=== PATIENT | female | born 2005 | race Caucasian/White ===

== ENCOUNTER 2024-11-29 08:08 | Emergency (ER) | payer BC ==
[2024-11-29] MEDS ORDERED: NA CHLORIDE 0.9% 1,000 ML ONE (09:22)
[2024-11-29] MEDS ORDERED: ONDANSETRON 4 MG/2 ML VIAL ONE (09:37)
[2024-11-29 09:46] LABS: Absolute Lymphocytes (CBC) 0.9 K/uL (0.7-4.9); Absolute Monocytes 1.3 K/uL (0.1-1.3); Absolute Neutrophil 16.8 K/uL (1.8-8.0); Basophils % 0.1 % (0-1.3); Hematocrit 38.8 % (36.0-45.0); Hemoglobin 13.1 g/dL (12.0-15.0); Lymphocytes % 4.5 % (15.3-44.8); MCH 31.4 pg (27.0-35.0); MCHC 33.8 g/dL (32.0-36.0); MCV 92.8 fL (80-100); MPV 7.2 fL (7.6-11.3); Neutrophils % 88.4 % (41.7-73.7); Platelets 440 thou/uL (152-406); RBC Red Blood Cell Count 4.17 M/uL (3.86-4.86); Red Cell Distribution Width 12.8 % (12.1-15.2)
[2024-11-29 10:01] LABS: ALT/SGPT 42 U/L (13-56); AST/SGOT 34 U/L (15-37); Albumin 4.6 g/dL (3.4-5.0); Albumin/Globulin Ratio 1.2 (1.1-1.8); Alkaline Phosphatase 71 U/L (45-117); Anion Gap 12.2 mEq/L (5.0-15.0); BUN Blood Urea Nitrogen 11 mg/dL (7-18); Bicarbonate 23 mEq/L (21-32); Bilirubin Direct < 0.2 mg/dL (0-0.2); Bilirubin Indirect, Calculated 0.3 mg/dL (0.2-0.8); Bilirubin Total 0.5 mg/dL (0.2-1.0); Glomerular Filtration Rate 105 ml/min (=/>90); Glucose Level 134 mg/dL (74-106); Lipase 20 U/L (13-75); Potassium 3.2 mEq/L (3.5-5.1); Protein, Total 8.6 g/dL (6.4-8.2); Sodium Level 139 mEq/L (136-145)
[2024-11-29] MEDS ORDERED: METOCLOPRAMIDE 10 MG/2mL INJ ONE (10:25)
[2024-11-29 10:57] LABS: Differential Total Cells Count 100; Lymphocytes 7 % (15-42); Monocytes 5 % (0-10); Platelet Estimate ADEQ; Segmented Neutrophils 88 % (40-80)
[2024-11-29 10:58] LABS: Blood Morphology Comment NOT SEEN (NOT SEEN)
[2024-11-29 11:33] LABS: Specific Gravity 1.023 (1.005-1.030)
[2024-11-29 11:36] LABS: Specific Gravity 1.023 (1.005-1.030); Sqamous Epithelial <5 /HPF (None Seen); Urine Bacteria None Seen /HPF (<20); Urine Bilirubin NEGATIVE (Negative); Urine Blood Negative (Negative); Urine Clarity Turbid (Clear); Urine Color Light-Yellow (Yellow); Urine Culture Reflex Order NOT NEEDED; Urine Glucose NEGATIVE (Negative); Urine Ketones 1+ (Negative); Urine Micro Reflex YN NO BILL MICROSCOPIC; Urine Mucus Slight /HPF (None Seen); Urine Nitrite NEGATIVE (Negative); Urine Protein 1+ (Negative); Urine RBC <5 /HPF (None Seen); Urine Urobilinogen Normal (Normal); Urine WBC <5 /HPF (<5); Urine pH 8.5 (5.0-7.0)
--- NOTE | 2024-11-29 12:12 | RAD REPORT ---
EXAMINATION: CT ABDOMEN AND PELVIS WITH CONTRAST CLINICAL INDICATION: Female, 19 years old.ABD PAIN TECHNIQUE: CT abdomen and pelvis was performed, after the administration of IV contrast, [facility]. Axial, sagittal and coronal reconstructions were obtained. One or more of the following dose reduction techniques were used: Automated exposure control, adjustment of the mA and/o r kV according to patient size, and/or iterative reconstruction. Unless otherwise specified, incidental findings do not require dedicated imaging follow-up. [id number]. COMPARISON: No prior exam. FINDINGS: LOWER CHEST: No acute process identified.No significant pericardial effusion. UPPER GI: No significant abnormality. LIVER: No significant focal abnormality. GALLBLADDER/BILE DUCTS: No biliary ductal dilatation.? PANCREAS: No mass, ductal dilation, or randell-pancreatic fluid. SPLEEN: Unremarkable. ADRENALS: No adrenal masses. KIDNEYS AND URETERS: No hydronephrosis.No suspicious renal mass. ABDOMINAL AORTA AND OTHER VESSELS: Normal caliber aorta and IVC. PERITONEUM: No abnormal free fluid. No free air. LYMPH NODES: No pathologic lymphadenopathy. ABDOMINAL WALL: Unremarkable SMALL BOWEL/COLON: Small bowel has normal course and caliber. No colonic wall thickening or pericolon ic inflammatory changes.Normal appendix. URINARY BLADDER: Underdistended but grossly unremarkable. REPRODUCTIVE ORGANS: 3 cm left adnexal cyst. <=5 cm: No follow-up imaging recommended MUSCULOSKELETAL: No acute or suspicious osseous abnormality. ADDITIONAL FINDINGS: None. IMPRESSION: No acute or significant abnormalities seen in the abdomen or pelvis. Normal appendix.
--- NOTE | 2024-11-29 12:19 | ER ---
Nurse's Notes [facility] Name: Ailyn Rapp Age: 19 yrs Sex: Female : 2005 Arrival Date: 11/29/2024 Time: 08:08 Bed 8 Private MD: Diagnosis: Veisalgia;Veisalgia (Hangover) Presentation: 11/29 08:38 Chief complaint: Patient states: Had a green party last night and drank tequila, woke this jl7 morning at 0400 with N/V/D, does not regularly drink. Mom reports intermittent blue lips, pt denies shortness of breath. Coronavirus screen: At this time, the client does not indicate any symptoms associated with coronavirus-19. Ebola Screen: No symptoms or risks identified at this time. Initial Sepsis Screen: Does the patient meet any 2 criteria? No. Patient's initial sepsis screen is negative. Does the patient have a suspected source of infection? No. Patient's initial sepsis screen is negative. Risk Assessment: Do you want to hurt yourself or someone else? Patient reports no desire to harm self or others. Onset of symptoms was November 29, 2024 at 04:00. 08:38 Method Of Arrival: Ambulatory [facility] 08:38 Acuity: ISABELL 3 jl7 Triage Assessment: 08:40 General: Appears in no apparent distress. uncomfortable, unkempt, well nourished, jl7 Behavior is calm, cooperative, restless. Pain: Denies pain. Neuro: Level of Consciousness is awake, alert, obeys commands, Oriented to person, place, time, situation. Cardiovascular: Patient's skin is warm and dry. Respiratory: Airway is patent Respiratory effort is even, unlabored, Respiratory pattern is regular, symmetrical. Derm: Skin is pink, warm \T\ dry. 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 - Infectious Disease History:: Denies. - Social history:: Smoking status: Reported history of juuling and/or vaping. Patient uses street drugs, marijuana. Screenin:40 [facility] ED Fall Risk Assessment (Adult) History of falling in the last 3 months, hb including since admission No falls in past 3 months (0 pts) Confusion or Disorientation No (0 pts) Intoxicated or Sedated No (0 pts) Impaired Gait No (0 pts) Mobility Assist Device Used No (0 pt) Altered Elimination No (0 pt) Score/Fall Risk Level 0 - 2 = Low Risk Oriented to surroundings, Maintained a safe environment, Educated pt \T\ family on fall prevention, incl call for assistance when getting out of bed. Abuse screen: Denies threats or abuse. Denies injuries from another. Nutritional screening: No deficits noted. Tuberculosis screening: No symptoms or risk factors identified. Assessment: 09:40 General: Appears in no apparent distress. Behavior is calm, cooperative. Pain: Denies hb pain. Neuro: Level of Consciousness is awake, alert, obeys commands, Oriented to person, place, time, situation. Cardiovascular: Patient's skin is warm and dry. Respiratory: Respiratory effort is even, unlabored, Respiratory pattern is regular, symmetrical. GI: Reports nausea, vomiting. : No signs and/or symptoms were reported regarding the genitourinary system. EENT: No signs and/or symptoms were reported regarding the EENT system. Derm: Skin is pink, warm \T\ dry. Musculoskeletal: No signs and/or symptoms reported regarding the musculoskeletal system. 10:45 Reassessment: Patient appears in no apparent distress at this time. Patient and/or hb family updated on plan of care and expected duration. Pain level reassessed. Patient is alert, oriented x 3, equal unlabored respirations, skin warm/dry/pink. 11:45 Reassessment: Patient appears in no apparent distress at this time. Patient and/or hb family updated on plan of care and expected duration. Pain level reassessed. Patient is alert, oriented x 3, equal unlabored respirations, skin warm/dry/pink. 12:44 Reassessment: Patient appears in no apparent distress at this time. Patient and/or hb family updated on plan of care and expected duration. Pain level reassessed. Patient is alert, oriented x 3, equal unlabored respirations, skin warm/dry/pink. Vital Signs: 08:38 BP 124 / 78; Pulse 82; Resp 17; Temp 97; Pulse Ox 100% ; Weight 49.9 kg; Height 5 ft. 2 jl7 in. ; Pain 0/10; 12:10 BP 128 / 64; Pulse 66; Resp 15; Pulse Ox 99% on R/A; hb 08:38 Body Mass Index 20.12 (49.90 kg, 157.48 cm) jl7 08:38 Pain Scale: Adult [facility] ED Course: 08:11 Patient arrived in ED. im 08:40 Triage completed. jl7 08:40 Arm band placed on right wrist. Patient placed in waiting room, Patient notified of jl7 wait time. 08:44 Edmond Gutierrez MD is Attending Physician. ec2 08:56 Jose Herrera RN is Primary Nurse. jl7 09:40 Patient has correct armband on for positive identification. Bed in low position. Call light in reach. Provided Education on: tests, result times, medications . 09:40 Initial lab(s) drawn, by me, sent to lab. Inserted saline lock: 20 gauge in right hb antecubital area, using aseptic technique. Blood collected. Flushed with 10 mL NS. 09:41 Lipase Sent. hb 09:41 Test, Serum Sent. hb 09:41 LFT's Sent. hb 09:41 BMP Sent. hb 09:41 CBC with Diff Sent. hb 10:49 Radiology exam delayed due to test not completed at this time. jc4 11:20 Test, Urine Sent. hb 11:20 UAM Sent. hb 12:00 CT Abd/Pelvis - IV Contrast Only In Process Unspecified. EDMS 12:44 No provider procedures requiring assistance completed. IV discontinued, intact, hb bleeding controlled, No redness/swelling at site. Pressure dressing applied. Administered Medications: 09:41 Drug: NS 0.9% IV 500 ml 500 ml IV at 1 bolus once; to be given as a bolus over 30 hb minutes Volume: 500 ml; Route: IV; Rate: 1 bolus; Site: right antecubital; 10:20 Follow up: IV Status: Completed infusion; IV Intake: 500ml hb 12:46 Follow up: Response: No adverse reaction hb 09:41 Drug: Ondansetron IVP 4 mg IVP once; over 2 minutes Route: IVP; Site: right antecubital;hb 10:45 Follow up: Response: No adverse reaction hb 10:35 Drug: metoCLOPramide IVP 10 mg IVP once; over 1 to 2 minutes Route: IVP; Site: right iw antecubital; 12:45 Follow up: Urine output 10 ml; Response: No adverse reaction hb 12:45 Follow up: Response: No adverse reaction hb Medication: 09:40 VIS not applicable for this client. hb Intake: 10:20 IV: 500ml; Total: 500ml. hb Output: 12:45 Urine: 10ml; Total: 10ml. hb Outcome: 12:19 Discharge ordered by . ec2 12:44 Discharged to home ambulatory, with family, hb 12:44 Condition: stable 12:44 Discharge instructions given to patient, Instructed on discharge instructions, follow up and referral plans. medication usage, Demonstrated understanding of instructions, follow-up care, medications, Prescriptions given X 1, 12:46 Patient left the ED. hb Signatures: Dispatcher [employer] Nemo Mustafa RN RN Monae Lamar RN RN Jose Herrera RN RN jl7 Lorena Pradhan Edwin, MD MD ec2 Darrion Glaser
--- NOTE | 2024-11-29 12:19 | EDPHYS ---
Physician Documentation [facility] Name: Ailyn Rapp Age: 19 yrs Sex: Female : 2005 Arrival Date: 11/29/2024 Time: 08:08 Bed 8 Private MD: ED Physician Edmond Gutierrez HPI: 11/29 09:03 This 19 yrs old Female presents to ER via Ambulatory with complaints of ETOH ec2 Abuse. 09:03 Patient arrives today for nausea and vomiting after drinking multiple alcoholic ec2 beverages last night. No medical problems, no significant abdominal pain. No urinary complaints. No other concerns.. 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 - Infectious Disease History:: Denies. - Social history:: Smoking status: Reported history of juuling and/or vaping. Patient uses street drugs, marijuana. ROS: 09:03 Constitutional: as per hpi ec2 Exam: 09:03 Constitutional: GEN: NAD Head: atraumatic Eyes: EOMI Ears: External ears are ec2 normal. CV: regular rate LUNGS: no respiratory distress ABD: non-distended, soft, not guarding, not rigid SKIN: no evidence of rashes MSK: no evidence of trauma Vital Signs: 08:38 BP 124 / 78; Pulse 82; Resp 17; Temp 97; Pulse Ox 100% ; Weight 49.9 kg; Height 5 ft. 2 jl7 in. ; Pain 0/10; 12:10 BP 128 / 64; Pulse 66; Resp 15; Pulse Ox 99% on R/A; hb 08:38 Body Mass Index 20.12 (49.90 kg, 157.48 cm) jl7 08:38 Pain Scale: Adult jl7 MDM: 08:43 Medical Screening Exam initiated ec2 09:04 Data reviewed: vital signs, nurses notes. ED course: Patient arrives today d/t concern ec2 for n/v after etoh use. Will obtain lab work, lipase numbers, treat the patient's symptoms. Suspect veisalgia. Additionally considered other processes such as , dehydration, pancreatitis.. 11/29 08:44 Order name: CBC with Diff; Complete Time: 10:59 ec2 11/29 08:44 Order name: BMP; Complete Time: 10:24 ec2 11/29 08:44 Order name: LFT's; Complete Time: 10:24 ec2 11/29 08:45 Order name: Lipase; Complete Time: 10:24 ec2 11/29 09:55 Order name: Manual Differential; Complete Time: 10:59 EDMS 11/29 11:01 Order name: UAM; Complete Time: 11:39 ec2 11/29 11:01 Order name: Test, Urine; Complete Time: 11:39 ec2 11/29 10:24 Order name: CT Abd/Pelvis - IV Contrast Only; Complete Time: 12:15 ec2 11/29 08:44 Order name: IV; Complete Time: 09:41 ec2 11/29 12:16 Order name: PO challenge; Complete Time: 12:33 ec2 Administered Medications: 09:41 Drug: NS 0.9% IV 500 ml 500 ml IV at 1 bolus once; to be given as a bolus over 30 hb minutes Volume: 500 ml; Route: IV; Rate: 1 bolus; Site: right antecubital; 10:20 Follow up: IV Status: Completed infusion; IV Intake: 500ml hb 12:46 Follow up: Response: No adverse reaction hb 09:41 Drug: Ondansetron IVP 4 mg IVP once; over 2 minutes Route: IVP; Site: right antecubital;hb 10:45 Follow up: Response: No adverse reaction hb 10:35 Drug: metoCLOPramide IVP 10 mg IVP once; over 1 to 2 minutes Route: IVP; Site: right iw antecubital; 12:45 Follow up: Urine output 10 ml; Response: No adverse reaction hb 12:45 Follow up: Response: No adverse reaction hb Disposition Summary: 11/29/24 12:19 Discharge Ordered Notes: Location: Home ec2 Condition: Stable ec2 Diagnosis - Veisalgia ec2 - Veisalgia (Hangover) ec2 Followup: ec2 - With: Private Physician - When: - Reason: Re-evaluation by your physician Discharge Instructions: - Discharge Summary Sheet ec2 - Alcohol Intoxication, [id number] ec2 Forms: - Medication Reconciliation Form ec2 - Antibiotic Education ec2 - Prescription Opioid Use ec2 - Patient Portal Instructions ec2 - Leadership Thank You Letter ec2 Prescriptions: - Zofran 4 mg Oral Tablet - take 1 tablet ORAL route every 12 hours As needed; 20 tablet; Refills: 0, ec2 Product Selection Permitted Signatures: Dispatcher [employer] EDNemo Goodman RN RN Monae Lamar RN RN Jose Herrera RN RN jl7 Edmond Gutierrez MD MD ec2 Corrections: (The following items were deleted from the chart) 08:45 08:45 LIPASE+C.LAB.BRZ ordered. EDMS EDMS 09:08 09:04 ED course: Patient arrives today d/t concern for n/v after etoh use. ec2 ec2 10:25 10:25 Abdomen Pelvis W Con+CT.RAD.BRZ ordered. EDMS EDMS
[2024-11-29 13:14] VITALS: TEMP 97
[2024-11-29 13:15] VITALS: BP 128/64; O2SAT 99
== END 2024-11-29 12:46 | disposition home or self-care (01) ==
LOC: ER 08:08
DX: F10.129 Alcohol abuse with intoxication, unspecified (principal)
CPT/HCPCS: 96361; 85025; 81001; 80048; 36415; 81025; 80076; 83690; 74177; 96375; 96374; 99284; Q9967; J2765; J2405; J7030